=== PATIENT | female | born 2000 | race Two or more races ===

== ENCOUNTER 2021-06-23 14:07 | Emergency (ER) | payer MEDICAID ==
[~2021-06-23] VITALS: Ht 157.5 cm; Wt 75.0 kg
[2021-06-23] MEDS ORDERED: ACETAMINOPHEN WITH CODEINE 300/30MG TABLET PO ONE (16:00)
[2021-06-23] MEDS ORDERED: BACITRACIN ZINC OINT UDPKT TOP ONE (16:00)
[2021-06-23] MEDS ORDERED: LIDOCAINE HCL/EPINEPHRINE 1%-EPI 1:100,000 20 ML VIAL INFIL ONE (16:00)
[2021-06-23] MEDS ORDERED: TETANUS, DIPHTHERIA, PERTUSSIS VAC/PF 0.5ML (>10YR OLD) IM ONE (16:00)
[2021-06-23 16:12] VITALS: BP 101/48
[2021-06-23] MEDS ORDERED: IBUP-2029 MT (17:51)
[2021-06-23] MEDS ORDERED: BO1 TP (17:51)
== END 2021-06-23 18:06 | disposition home or self-care (01) ==
LOC: ER 14:20
DX: S02.2XXA Fracture of nasal bones, initial encounter for closed fracture (principal); S01.81XA Laceration without foreign body of other part of head, initial encounter; F12.10 Cannabis abuse, uncomplicated; W05.2XXA Fall from non-moving motorized mobility scooter, initial encounter; Y93.89 Activity, other specified; Y92.488 Other paved roadways as the place of occurrence of the external cause
CPT/HCPCS: 12013; 70450; 70486; 81025; 90471; 90715; 99284; J3490

== ENCOUNTER 2021-06-28 15:55 | Emergency (ER) | payer MEDICAID ==
[~2021-06-28] VITALS: Ht 157.5 cm; Wt 83.0 kg
[~2021-06-28 15:55] MED LIST: BO1 TP; IBUP-2029 MT
[2021-06-28 21:17] VITALS: BP 110/66
== END 2021-06-28 21:34 | disposition home or self-care (01) ==
LOC: ER 15:55
DX: S01.81XD Laceration without foreign body of other part of head, subsequent encounter (principal); Z48.00 Encounter for change or removal of nonsurgical wound dressing; X58.XXXD Exposure to other specified factors, subsequent encounter
CPT/HCPCS: 99281

== ENCOUNTER 2024-06-01 13:30 | Emergency (ER) | payer MEDICAID ==
[~2024-06-01] VITALS: Ht 165.1 cm; Wt 77.1 kg
[2024-06-01 13:33] VITALS: O2SAT 99
[2024-06-01 13:45] VITALS: BP 116/62; PULSE 113; RESP 18; TEMP 36.8; O2SAT 97
[2024-06-01] MEDS ORDERED: IBUP-2028 MT (17:52)
[2024-06-01] MEDS ORDERED: NEOM10SO7 LEFT EAR (17:53)
== END 2024-06-01 18:15 | disposition home or self-care (01) ==
LOC: ER 13:30
DX: H60.392 Other infective otitis externa, left ear (principal); F12.90 Cannabis use, unspecified, uncomplicated; Z79.899 Other long term (current) drug therapy
CPT/HCPCS: 99283

== ENCOUNTER 2024-07-27 12:59 | Emergency (ER) | payer MEDICAID ==
[~2024-07-27] VITALS: Ht 157.5 cm; Wt 73.4 kg
[~2024-07-27 12:59] MED LIST changes: +IBUP-2028 MT; +NEOM10SO7 LEFT EAR
[2024-07-27 13:02] VITALS: O2SAT 98
[2024-07-27] MEDS: HYDROCODONE/ACETAMINOPHEN 5/325MG TABLET PO ONE (15:44)
[2024-07-27] MEDS: KETOROLAC 30MG/ML VIAL IM ONE (15:44)
[2024-07-27] MEDS: BACITRACIN ZINC OINT UDPKT TOP ONE ×3 (16:11→17:39)
[2024-07-27] MEDS: LIDOCAINE HCL/EPINEPHRINE 1%-EPI 1:100,000 20ML VIAL INFIL ONE (16:11)
[2024-07-27] MEDS ORDERED: SULF1TAB48 MT (17:20)
[2024-07-27] MEDS ORDERED: NAPR-681 MT (17:20)
[2024-07-27] MEDS ORDERED: CEPH500T MT (17:20)
[2024-07-27] MEDS ORDERED: HYDR-4001 MT (17:20)
[2024-07-27] MEDS: HYDROCODONE/ACETAMINOPHEN 5/325MG TABLET PO STA (17:42)
[2024-07-27 17:47] VITALS: BP 122/78; PULSE 88; RESP 18; TEMP 37.1; O2SAT 99
== END 2024-07-27 17:57 | disposition home or self-care (01) ==
LOC: ER 12:59
DX: L02.412 Cutaneous abscess of left axilla (principal); L02.411 Cutaneous abscess of right axilla; F12.90 Cannabis use, unspecified, uncomplicated; Z79.899 Other long term (current) drug therapy
CPT/HCPCS: 99284; 81025; 96372; J1885; J2004

== ENCOUNTER 2024-07-29 22:59 | Emergency (ER) | payer MEDICAID ==
[~2024-07-29] VITALS: Ht 157.5 cm; Wt 75.0 kg
[~2024-07-29 22:59] MED LIST changes: +CEPH500T MT; +HYDR-4001 MT; +NAPR-681 MT; +SULF1TAB48 MT
[2024-07-29 23:06] VITALS: TEMP 36.7; O2SAT 99
[2024-07-30 00:52] VITALS: BP 115/84; PULSE 82; RESP 16; O2SAT 99
== END 2024-07-30 00:50 | disposition home or self-care (01) ==
LOC: ER 23:40
DX: L02.412 Cutaneous abscess of left axilla (principal); L02.411 Cutaneous abscess of right axilla; F12.90 Cannabis use, unspecified, uncomplicated; Z98.890 Other specified postprocedural states; Z79.899 Other long term (current) drug therapy
CPT/HCPCS: 99281; Z7610